=== PATIENT | female | born 1975 | race Caucasian/White ===

== ENCOUNTER 2018-05-15 17:40 | Emergency (ER) | payer BC ==
[2018-05-15] MEDS ORDERED: LIDOCAINE HCL 2% VISC. ORAL 300MG/15ML UDC PO ONE (18:06)
[2018-05-15] MEDS ORDERED: MAG HYDROX/ALUMINUM HYD/SIMETH 30 ML, Lidocaine 2%Visc 15ml 20 MG, PHENOBARB-HYOSCYAM-A... PO ONE ×3 (18:06)
[2018-05-15] MEDS ORDERED: MAG HYDROX/ALUMINUM HYD/SIMETH 30 ML UDC PO ONE (18:06)
--- NOTE | 2018-05-15 18:08 | ED Physician Documentation ---
Chest Pain - HPI Stated Complaint: Chest pain Chief Complaint: Chest Pain Additional Information: Patient presents to ED with a 2 day history of chest pressure radiating down left arm with associated nausea and dizziness. Patient states she had similar symptoms a couple of months ago and was evaluated in [place]. She was diagnosed with reflux and sent home on Zantac which she takes daily. Patient reports a history of anxiety. Mother had CABG around age [age] and has since . Onset: days ago (2) Timing: gradual onset Duration: waxing, waning Last known Well Date: 05/13/18 Last Known Well Time: 07:00 Severity: mild Quality: pressure Chest Pain Radiation: arms Chest Pain Signs/Symptoms: nausea. denies: diaphoresis Worsened By: denies: deep breaths, exertion Relieved By: nothing - ROS CONST: denies: fever MS/LYMPH: denies: neck pain GI/: nausea. denies: vomiting EYES/ENT: denies: problems with vision SKIN/ENDO: denies: rash NEURO/PSYCH: denies: headache - PAST HX AL risk factors: other (anxiety) DVT/PE Risk Factors: none TAD/AAA risk factors: none Neuro deficit: none GI disease: GERD Lung disease: none Surgeries/Procedures: none Allergies/Adverse Reactions: Allergies Allergy/AdvReac Type Severity Reaction Status Date / Time Penicillins AdvReac Severe itching, Unverified 05/15/18 19:33 hives Home Medications: Ambulatory Orders Medication Instructions Recorded NK 05/15/18 - SOCIAL HX Smoking History: cigarettes, greater than 1 pack/day Alcohol Use: none Drug Use: none - FAMILY HX Family HX: CAD over 55 - VITAL SIGNS Vital Signs: Vital Signs Temp Pulse Resp BP Pulse Ox 70 19 121/58 97 05/15/18 17:40 05/15/18 17:40 05/15/18 17:40 05/15/18 17:40 - REVIEWED ASSESSMENTS Nursing Assessment Reviewed: Yes Vitals Reviewed: Yes Progress - Progress Progress: 1942 Patient states she is feeling much better after xanax. - EKG/XRAY/CT EKG: NSR Comments: 58 bpm ED Results Lab/Radiology - Radiology Radiology Impressions: Report Submission Date: May 15, 2018 6:37:50 PM MARBLE FINISHER Patient Study Name: TIM TRIPATHI Date: May 15, 2018 6:03:32 PM MARBLE FINISHER Modality Type: DX Gender: F Description: CHEST 1VIEW : 75 Institution: [facility] [place] Physician: PO JORDAN Chest, AP portable HISTORY Chest pain FINDINGS No infiltrate, effusion or pneumothorax is present. Heart size, mediastinum and pulmonary vascularity are normal. IMPRESSION Normal. Electronically signed on May 15, 2018 6:37:50 PM MARBLE FINISHER by: Anirudh Petty - Orders Orders: ED Orders Category Date Time Status Place IV Lock 1T Care 05/15/18 18:00 Ordered CHEST 1VIEW [RAD] Stat Exams 05/15/18 Ordered CBC/PLATELET/DIFF Routine Lab 05/15/18 Ordered CMP Routine Lab 05/15/18 Ordered NT-proBNP Stat Lab 05/15/18 Ordered TROPONIN I (cTnI) Stat Lab 05/15/18 Ordered Gi Cocktail Med 05/15/18 18:06 Ordered Mag Hydrox/Aluminum Hyd/Simeth [Mylanta] 30 ml Lidocaine 2%Visc 15ml [Xylocaine] 20 mg PHENobarb/HYOSCY/ATROPINE/SCOP [] 10 ml PO NOW Lidocaine 2%Visc 15ml [Xylocaine] Med 05/15/18 18:06 Once 15 mg PO NOW ONE Mag Hydrox/Aluminum Hyd/Simeth [Mylanta] Med 05/15/18 18:06 Once 30 ml PO NOW ONE EKG WITH COMPARISON Stat Ther 05/15/18 Ordered Chest Pain Physical Exam - EXAM General Appearance: no acute distress, alert EENT: ERICA Neck: nml inspection Respiratory: chest non-tender, nml breath sounds CVS: reg. rate & rhythm, no murmur Abdomen: soft, normal bowel sounds. No: tenderness Skin: warm/dry, normal color Extremities: non-tender, no edema Neuro: oriented X3, motor nml Discharge Clincal Impression: Anxiety Chest pain Qualifiers: Chest pain type: precordial pain Qualified Code(s): R07.2 - Precordial pain Referrals: Primary Doctor,No [Primary Care Provider] - 2 Days Additional Instructions: 1. Call [phone] for an appointment at Clinic 2. Request PCP to order Nuclear Medicine Stress test 3. Return to ER for new or worsening symptoms. 4. Smoking cessation strongly encouraged. Condition: Stable Disposition: 01 HOME, SELF-CARE Decision to Admit: NO Date of Decison to Admit: 05/15/18 Decision Time: 19:46
[2018-05-15 18:28] LABS: eGFR (Non-African) > 60
[2018-05-15 18:29] LABS: MEAN CORPUSCULAR HEMOGLOBIN 27.6 pg (28.0-34.0)
[2018-05-15 18:30] LABS: BASOPHILS % 0.5 (0.0-1.5); EOSINOPHILS % 5.9 % (0.0-6.8); MONOCYTES % 4.6 % (0.0-11.0); NEUTROPHILS # 8.6 # k/uL (1.4-7.7)
[2018-05-15] MEDS ORDERED: ALPRAZOLAM 0.5 MG TABLET PO ONE (18:46)
[2018-05-15 19:58] VITALS: BP 119/59
--- NOTE | 2018-05-15 21:52 | Diagnostic Imaging Report ---
PO JORDAN [facility] [id number] [facility] [address] [place] [address]. [id number] Report Submission Date: May 15, 2018 6:37:50 PM INSURANCE SPECIAL AGENT Patient Study Name: TIM TRIPATHI Date: May 15, 2018 6:03:32 PM INSURANCE SPECIAL AGENT Modality Type: DX Gender: F Description: CHEST 1VIEW : 75 Institution: [facility] Physician: PO JORDAN Chest, AP portable HISTORY Chest pain FINDINGS No infiltrate, effusion or pneumothorax is present. Heart size, mediastinum and pulmonary vascularity are normal. IMPRESSION Normal. Electronically signed on May 15, 2018 6:37:50 PM INSURANCE SPECIAL AGENT by: Anirudh SAUCEDO
== END 2018-05-15 19:58 | disposition home or self-care (01) ==
LOC: ED 17:40 → SUPCPDRO 17:40 → ED 19:58
DX: F41.9 Anxiety disorder, unspecified (principal); R07.2 Precordial pain; Z72.0 Tobacco use
CPT/HCPCS: 36415; 71045; 80053; 83880; 84484; 85025; 93005; 99283; 99284; A9270; S1016

== ENCOUNTER 2018-05-23 09:59 | Outpatient (CLI) | payer BC ==
[2018-05-17 18:51] VITALS: BP 120/68
[2018-05-23 10:32] LABS: eGFR (Non-African) > 60
== END 2018-05-23 10:05 ==
LOC: LAB 09:59
PROVIDERS: ATTEND Family Medicine
DX: R07.9 Chest pain, unspecified (principal); E87.6 Hypokalemia
CPT/HCPCS: 36415; 80048; 82550; 82553; 84484